=== PATIENT | male | born 1965 | race Caucasian/White ===

== ENCOUNTER 2025-04-18 19:52 | Emergency (ER) | payer MEDICAID ==
[~2025-04-18] VITALS: Ht 162.6 cm; Wt 60.2 kg
[2025-04-18 19:59] VITALS: TEMP 36.7; O2SAT 98
[2025-04-18] MEDS ORDERED: CEPH500C2 MT (22:12)
[2025-04-18 22:30] VITALS: BP 137/74; PULSE 68; RESP 16; O2SAT 98
== END 2025-04-18 22:34 | disposition home or self-care (01) ==
LOC: ER 19:52
DX: T24.201A Burn of second degree of unspecified site of right lower limb, except ankle and foot, initial encounter (principal); Z98.890 Other specified postprocedural states; X08.8XXA Exposure to other specified smoke, fire and flames, initial encounter; Y93.89 Activity, other specified; Y92.89 Other specified places as the place of occurrence of the external cause; Y99.8 Other external cause status
CPT/HCPCS: 99283